=== PATIENT | male | born 1970 | race Hispanic/Latino ===

== ENCOUNTER 2017-10-20 11:49 | Emergency (ER) | payer BC ==
--- NOTE | 2017-10-20 13:31 | ER ---
Nurse's Notes [facility] Name: Jessica Hogan Age: 47 yrs Sex: Male : 1970 Arrival Date: 10/20/2017 Time: 11:53 Bed 13 Private MD: Diagnosis: Acute sinusitis;Perforation of tympanic membrane-right;Acute serous otitis media, left ear Presentation: 10/20 12:02 Presenting complaint: Patient states: Sinus congestion and pain since Saturday. Reports aj ear congestion and dizziness when turning head. Ambulated to triage with steady gait. Transition of care: patient was not received from another setting of care. Onset of symptoms was October 18, 2017. Risk Assessment: Do you want to hurt yourself or someone else? Patient reports no desire to harm self or others. Initial Sepsis Screen: Does the patient meet any 2 criteria? No. Patient's initial sepsis screen is negative. Does the patient have a suspected source of infection? No. Patient's initial sepsis screen is negative. Care prior to arrival: None. 12:02 Method Of Arrival: Ambulatory aj 12:02 Acuity: PIETRO 4 aj Triage Assessment: 12:03 General: Appears in no apparent distress. comfortable, Behavior is calm, cooperative, aj appropriate for age. Pain: Complains of pain in right eye, right cheek, nose, left cheek and left eye. EENT: Reports nasal congestion nasal discharge congestion in ears. Neuro: Level of Consciousness is awake, alert, obeys commands, Oriented to person, place, time, situation, Appropriate for age. Respiratory: Airway is patent Trachea midline Respiratory effort is even, unlabored, Respiratory pattern is regular, symmetrical. Derm: Skin is intact, is healthy with good turgor, Skin is pink, warm \T\ dry. normal. 13:20 Headache History: Denies prior headaches. rb1 13:20 Pain: Also complains of no other associated symptoms. rb1 Historical: - Allergies: 12:03 No Known Allergies; aj - Home Meds: 12:03 Flonase Nasal [Active]; aj - PMHx: 12:03 None; aj - PSHx: 12:03 Knee surgery; aj - Immunization history:: Adult Immunizations up to date. - Social history:: Smoking status: Patient/guardian denies using tobacco. - Ebola Screening: : Patient negative for fever greater than or equal to 101.5 degrees Fahrenheit, and additional compatible Ebola Virus Disease symptoms Patient denies exposure to infectious person Patient denies travel to an Ebola-affected area in the 21 days before illness onset No symptoms or risks identified at this time. Screenin:20 Abuse screen: Denies threats or abuse. Nutritional screening: No deficits noted. rb1 Tuberculosis screening: No symptoms or risk factors identified. Fall Risk None identified. Assessment: 13:20 General: Appears in no apparent distress. comfortable, Behavior is calm, cooperative, rb1 Denies fever. Pain: Complains of pain in forehead Pain currently is 5 out of 10 on a pain scale. Pain began 2-3 days ago. Neuro: Level of Consciousness is awake, alert, obeys commands, Oriented to person, place, time, situation. Cardiovascular: Capillary refill < 3 seconds is brisk in bilateral fingers. Respiratory: Airway is patent Respiratory effort is even, unlabored, Respiratory pattern is regular, symmetrical. GI: No signs and/or symptoms were reported involving the gastrointestinal system. : No signs and/or symptoms were reported regarding the genitourinary system. Derm: Skin is pink, warm \T\ dry. Vital Signs: 12:03 BP 130 / 77; Pulse 74; Resp 20; Temp 98.2; Pulse Ox 100% on R/A; Weight 81.65 kg; aj Height 5 ft. 10 in. (177.80 cm); 13:00 BP 121 / 79; Pulse 64; Resp 19; Pulse Ox 100% on R/A; rb1 14:00 BP 124 / 84; Pulse 61; Resp 17; Pulse Ox 100% on R/A; rb1 12:03 Body Mass Index 25.83 (81.65 kg, 177.80 cm) aj ED Course: 11:53 Patient arrived in ED. rg4 12:03 Triage completed. aj 12:03 Arm band placed on left wrist. Patient placed in waiting room. aj 12:05 Patient notified of wait time. aj 13:15 Mahi Randall [facility]C is [facility]. snw 13:15 Ross Holloway MD is Attending Physician. snw 13:20 Patient has correct armband on for positive identification. Bed in low position. Call rb1 light in reach. Side rails up X 1. Pulse ox on. NIBP on. 13:30 Nicole Thapa MD is Referral Physician. snw 13:42 Tammy Avila, RN is Primary Nurse. rb1 14:18 No provider procedures requiring assistance completed. Patient did not have IV access rb1 during this emergency room visit. Administered Medications: 13:49 Drug: Meclizine 50 mg Route: PO; rb1 14:17 Follow up: Response: No adverse reaction rb1 13:49 Drug: Augmentin 875 mg Route: PO; rb1 14:17 Follow up: Response: No adverse reaction rb1 Outcome: 13:31 Discharge ordered by MD. snw 14:18 Discharged to home ambulatory. rb1 14:18 Condition: stable 14:18 Discharge instructions given to patient, Instructed on discharge instructions, follow up and referral plans. medication usage, Demonstrated understanding of instructions, follow-up care, medications, Prescriptions given X 2. 14:19 Patient left the ED. rb1 Signatures: Carlotta Segura, RN RN Mahi Castaneda, [employer]-C [employer]-Csnw Tammy Avila, RN RN rb1 Charu Forbes rg4
--- NOTE | 2017-10-20 13:31 | EDPHYS ---
Physician Documentation [facility] Name: Jessica Hogan Age: 47 yrs Sex: Male : 1970 Arrival Date: 10/20/2017 Time: 11:53 Bed 13 Private MD: ED Physician Ross Holloway HPI: 10/20 16:06 This 47 yrs old Male presents to ER via Ambulatory with complaints of Sinus snw Pain. 16:07 The patient presents with a fullness, mild lightheadedness. The complaints affect the snw right ear and left ear. Onset: The symptoms/episode began/occurred suddenly, 2 day(s) ago, and became persistent. Associated signs and symptoms: The patient has no apparent associated signs or symptoms. Severity of symptoms: At their worst the symptoms were moderate. The patient has experienced similar episodes in the past. The patient has not recently seen a physician. Historical: - Allergies: 12:03 No Known Allergies; aj - Home Meds: 12:03 Flonase Nasal [Active]; aj - PMHx: 12:03 None; aj - PSHx: 12:03 Knee surgery; aj - Immunization history:: Adult Immunizations up to date. - Social history:: Smoking status: Patient/guardian denies using tobacco. - Ebola Screening: : Patient negative for fever greater than or equal to 101.5 degrees Fahrenheit, and additional compatible Ebola Virus Disease symptoms Patient denies exposure to infectious person Patient denies travel to an Ebola-affected area in the 21 days before illness onset No symptoms or risks identified at this time. ROS: 15:56 Eyes: Negative for injury, pain, redness, and discharge. snw 15:56 Neck: Negative for injury, pain, and swelling, Cardiovascular: Negative for chest pain, palpitations, and edema, Respiratory: Negative for shortness of breath, cough, wheezing, and pleuritic chest pain, Abdomen/GI: Negative for abdominal pain, nausea, vomiting, diarrhea, and constipation, Back: Negative for injury and pain, : Negative for injury, bleeding, discharge, and swelling, MS/Extremity: Negative for injury and deformity, Skin: Negative for injury, rash, and discoloration. 15:56 Constitutional: Positive for malaise. 15:56 ENT: Positive for ear pain, nasal discharge, sinus congestion, sinus pain, sore throat. 15:56 Neuro: Positive for dizziness. Exam: 15:56 Constitutional: This is a well developed, well nourished patient who is awake, alert, snw and in no acute distress. Head/Face: Normocephalic, atraumatic. Eyes: Pupils equal round and reactive to light, extra-ocular motions intact. Lids and lashes normal. Conjunctiva and sclera are non-icteric and not injected. Cornea within normal limits. Periorbital areas with no swelling, redness, or edema. Neck: Trachea midline, no thyromegaly or masses palpated, and no cervical lymphadenopathy. Supple, full range of motion without nuchal rigidity, or vertebral point tenderness. No Meningismus. Chest/axilla: Normal chest wall appearance and motion. Nontender with no deformity. No lesions are appreciated. Cardiovascular: Regular rate and rhythm with a normal S1 and S2. No gallops, murmurs, or rubs. Normal PMI, no JVD. No pulse deficits. Respiratory: Lungs have equal breath sounds bilaterally, clear to auscultation and percussion. No rales, rhonchi or wheezes noted. No increased work of breathing, no retractions or nasal flaring. Abdomen/GI: Soft, non-tender, with normal bowel sounds. No distension or tympany. No guarding or rebound. No evidence of tenderness throughout. Back: No spinal tenderness. No costovertebral tenderness. Full range of motion. Skin: Warm, dry with normal turgor. Normal color with no rashes, no lesions, and no evidence of cellulitis. MS/ Extremity: Pulses equal, no cyanosis. Neurovascular intact. Full, normal range of motion. Neuro: Awake and alert, GCS 15, oriented to person, place, time, and situation. Cranial nerves II-XII grossly intact. Motor strength 5/5 in all extremities. Sensory grossly intact. Cerebellar exam normal. Normal gait. Psych: Awake, alert, with orientation to person, place and time. Behavior, mood, and affect are within normal limits. 15:56 ENT: External ear(s): are unremarkable, Ear canal(s): are normal, TM's: dullness, fluid levels, on the left, rupture, on the right, no dc. Vital Signs: 12:03 BP 130 / 77; Pulse 74; Resp 20; Temp 98.2; Pulse Ox 100% on R/A; Weight 81.65 kg; aj Height 5 ft. 10 in. (177.80 cm); 13:00 BP 121 / 79; Pulse 64; Resp 19; Pulse Ox 100% on R/A; rb1 14:00 BP 124 / 84; Pulse 61; Resp 17; Pulse Ox 100% on R/A; rb1 12:03 Body Mass Index 25.83 (81.65 kg, 177.80 cm) aj MDM: 13:23 Patient medically screened. snw 16:05 Data reviewed: vital signs, nurses notes. Data interpreted: Pulse oximetry: on room air snw is 100 %. Counseling: I had a detailed discussion with the patient and/or guardian regarding: the historical points, exam findings, and any diagnostic results supporting the discharge/admit diagnosis, the presence of at least one elevated blood pressure reading (>120/80) during this emergency department visit, the need for outpatient follow up, to return to the emergency department if symptoms worsen or persist or if there are any questions or concerns that arise at home. Special discussion: I have referred the patient to see his PCP for further evaluation of high blood pressure. Based on the history and exam findings, there is no indication for further emergent testing or inpatient evaluation. I discussed with the patient/guardian the need to see the primary care provider for further evaluation of the symptoms. Administered Medications: 13:49 Drug: Meclizine 50 mg Route: PO; rb1 14:17 Follow up: Response: No adverse reaction rb1 13:49 Drug: Augmentin 875 mg Route: PO; rb1 14:17 Follow up: Response: No adverse reaction rb1 Disposition: 16:18 Co-signature as Attending Physician, Ross Holloway MD I agree with the assessment and kdr plan of care. Disposition: 10/20/17 13:31 Discharged to Home. Impression: Acute sinusitis, Perforation of tympanic membrane - right, Acute serous otitis media, left ear. - Condition is Stable. - Discharge Instructions: Dehydration, Adult, Otitis Media, Adult, Sinusitis, Adult, Rehydration, Adult. - Prescriptions for Augmentin 875- 125 mg Oral Tablet - take 1 tablet by ORAL route every 12 hours for 10 days; 20 tablet. Meclizine 25 mg Oral Tablet - take 1 tablet by ORAL route every 8 hours As needed; 30 tablet. - Work release form, Medication Reconciliation Form, Thank You Letter, Antibiotic Education, Prescription Opioid Use form. - Follow up: Nicole Thapa MD; When: 1 week; Reason: Recheck today's complaints, Continuance of care. Signatures: Carlotta Segura, RN RN Ross Espinoza MD MD kdr Therrien, Shelly, THREAD [employer]NER-C THREAD SPINNER-Csnw Tammy Avila, RN RN rb1 Corrections: (The following items were deleted from the chart) 14:19 13:31 10/20/2017 13:31 Discharged to Home. Impression: Acute sinusitis; Perforation of rb1 tympanic membrane - right; Acute serous otitis media, left ear. Condition is Stable. Forms are Medication Reconciliation Form, Thank You Letter, Antibiotic Education, Prescription Opioid Use. Follow up: Nicole Thapa; When: 1 week; Reason: Recheck today's complaints, Continuance of care. snw
[2017-10-20] MEDS ORDERED: MECLIZINE HCL 12.5 MG TAB ONE (13:48)
[2017-10-20] MEDS ORDERED: AMOX/K CLAV 875 MG TAB ONE (13:49)
== END 2017-10-20 14:19 | disposition home or self-care (01) ==
LOC: ER 11:49
DX: J01.90 Acute sinusitis, unspecified (principal); H72.91 Unspecified perforation of tympanic membrane, right ear; H65.02 Acute serous otitis media, left ear
CPT/HCPCS: 99283

== ENCOUNTER 2020-08-31 10:03 | Day surgery (SDC) | payer BC ==
--- NOTE | 2020-08-26 13:11 | RAD REPORT ---
EXAM DESCRIPTION: Dominguez Faulkner (2 Views)08/26/2020 12:56 pm CLINICAL HISTORY: Preop for hernia surgery COMPARISON: 2009 FINDINGS: The lungs appear clear of acute infiltrate. The heart is normal size IMPRESSION: No acute abnormalities displayed
[2020-08-26 13:25] LABS: Basophils % 0.7 % (0-1.3); Hematocrit 44.5 % (39.6-49.0); Lymphocytes % 32.6 % (15.3-44.8); MPV 8.5 fL (7.6-11.3); RBC Red Blood Cell Count 4.84 M/uL (4.33-5.43)
[2020-08-26 13:30] LABS: BUN Blood Urea Nitrogen 17 mg/dL (7-18); Bicarbonate 30 mmol/L (21-32); Glucose Level 90 mg/dL (74-106); Potassium 4.2 mmol/L (3.5-5.1); Sodium Level 141 mmol/L (136-145)
[2020-08-31] MEDS ORDERED: Ringers Lactate 1,000 ML IV ONE (10:35)
[2020-08-31 10:57] VITALS: O2SAT 100
[2020-08-31] MEDS: CEFAZOLIN/SWI 1gm 1 GM/10 ML SYR ONE ×2 (11:24→12:30)
[2020-08-31] MEDS ORDERED: LIDOCAINE 1% MPF 5 ML VIAL ONE (12:28)
[2020-08-31] MEDS ORDERED: propofoL 200 MG/20 ML VIAL IV ONE (12:28)
[2020-08-31] MEDS ORDERED: MIDAZOLAM HCL 2 MG/2 ML INJ ONE (12:28)
[2020-08-31] MEDS ORDERED: ROCURONIUM 50 MG/5 ML VIAL IV ONE (12:28)
[2020-08-31] MEDS ORDERED: FENTANYL CITR 100 MCG/2 ML ONE ×2 (12:28→13:16)
[2020-08-31] MEDS ORDERED: KETOROLAC 30 MG/ML INJ ONE (13:01)
[2020-08-31] MEDS ORDERED: ONDANSETRON 4 MG/2 ML VIAL ONE ×2 (13:08→15:54)
[2020-08-31] MEDS ORDERED: dexAMETHasone 10 MG/ML VIAL ONE (13:11)
--- NOTE | 2020-08-31 13:12 | P.BOP ---
Preoperative diagnosis: RLQ incisional pain, RLQ abd pain, bilateral inguinal pain Postoperative diagnosis: same plus extensive lower abdominal adhesions, umbilical hernia Primary procedure: 1. Diagnostic laparoscopy, 2. Extensive laparoscopic lysis of adhesions Secondary procedure: 3. repair of umbilical hernia Clinical Counselor: EDEL SANDERS (SURGICAL SPECIALIST) Estimated blood loss: <10cc Specimen: hernia sac Findings: extensive lower abdominal adhesions with entrapment of ascending colon Anesthesia: General Transferred to: Recovery Room Condition: Good
[2020-08-31] MEDS ORDERED: GLYCOPYRROLATE 0.2 MG/ML SYR ONE (13:27)
[2020-08-31] MEDS ORDERED: NEOSTIGMINE 1 MG/ML -5 ML ONE (13:28)
[2020-08-31] MEDS ORDERED: SUGAMMADEX SODIUM 200 MG/2 ML VIAL IV ONE (13:36)
[2020-08-31 16:07] VITALS: BP 125/81; TEMP 97.3
--- NOTE | 2020-09-05 10:23 | OP ---
Date of Procedure: 08/31/2020 Surgeon: Edvin Saavedra MD Can Operator: Essence Romero. Preoperative Diagnoses: Right lower quadrant incisional pain, right lower quadrant abdominal pain, b ilateral inguinal pain. Postoperative Diagnoses: Right lower quadrant incisional pain, right lower quadrant abdominal pain, bilateral inguinal pain, extensive lower abdominal adhesions, umbilical hernia. Procedures: 1.Diagnostic laparoscopy. 2.Extensive laparoscopic lysis of adhesions. 3.Repair of umbilical hernia. Estimated Blood Loss: Less than 10 mL. Specimen: Hernia sac. Findings: Extensive lower abdominal adhesions with entrapment of the ascending colon between those a dhesions. Anesthesia: General plus local. Indication: This is the case of a male, who comes to us with lower abdominal pain, etiology of that is unknown. He says the pain is in the right lower quadrant over the previous open appendectomy inci rhys that he had many years ago, but also bilateral inguinal region on exertion. We have not been ab le to find exact etiology of his pain. It is disturbing his social life and he wants something to be done. He had extensive imaging that has not been able to detect neither the etiology of his pain, s o we offered him a diagnostic laparoscopy and any anesthetic procedure with benefits, alternatives, a nd risks include, but not limited to infection, bleeding, damage to adjacent structures, anesthesia c omplication, negative exploration, PR, even . He also understands this may not relieve the symp toms. He might need more than one surgical intervention. He understood, signed a consent. Description Of Procedure: The patient was brought to the operating room and placed in supine positio n. Anesthesia was done without complication. Abdominal area was prepped and draped in sterile fashi on. A time-out was called. An incision was made in the infraumbilical region. Incision was carried down to fascia. We noticed the patient to have an umbilical hernia with some incarcerated omentum a ttached to it. The hernia sac was removed. The omentum was reduced back into the abdominal cavity a fter fully inspected and make sure it is viable. This allowed me to put a Vicryl #1 inside of the fa scia. Maricruz trocar was carefully introduced. No bleeding was obtained. The patient had extensive intraabdominal adhesions come from the pelvis all the way to the right lower quadrant allegedly from that previous open complicated appendectomy he had many years ago. We were able to find a place on t he left lower quadrant that we can place a 5 mm trocar safely. Once we have that, we were able to pl medina in the [employer] and start to carefully remove the adhesions. As we removed the adhesions, we can see more and more. We see that some of that adhesions are kinking and entraping the ascending colon in a different angle, so we put another 5 mm trocar and we proceeded then to take those lysis of adh esions out. We took most of the time just to do lysis of adhesions, releasing them within the pelvis , releasing them from the right lower quadrant. The bowel looks viable and released now. The ascend ing, transverse, descending colon with no extraluminal masses seen. Liver with no extracapsular mass es seen. Stomach soft and compressible. The area of the inguinal region, I cannot see inguinal heather ias in that region. At least, I do not see any peritoneum going in any hole. Pelvic was intact. Th e adhesions were done without any enterotomies. After inspecting the area and inspecting the small b owel with no masses neither, at that moment I proceeded to remove the trocars under direct vision, de flated pneumoperitoneum, closed the umbilical hernia with #1 Vicryl, irrigated subcutaneous tissue, c losed with 3-0 chromic and skin approximated. Sponge counts and instrument counts correct. The wesley ent tolerated the procedure well. The patient was sent to recovery in stable condition. Disposition: Home. Activity: As tolerated. No heavy lifting. Plan: Follow up in my office in 1 week. Call for appointment at [phone]. Keep area dry for 48 kayce rs, then may shower. Medications: See orders. HM/MODL Voice ID: [id number] Report ID: [id number]
== END 2020-08-31 16:15 | disposition home or self-care (01) ==
LOC: OR 10:03
PROVIDERS: ATTEND Surgery
PROC: 0DNW4ZZ Release Peritoneum, Percutaneous Endoscopic Approach (ICD-10-PCS; 2020-08-31)
PROC: 0WQF4ZZ Repair Abdominal Wall, Percutaneous Endoscopic Approach (ICD-10-PCS; principal; 2020-08-31 11:15)
DX: K42.0 Umbilical hernia with obstruction, without gangrene (principal); R10.32 Left lower quadrant pain; K66.0 Peritoneal adhesions (postprocedural) (postinfection); Z20.822 Contact with and (suspected) exposure to COVID-19
CPT/HCPCS: 49653; 93005; 85025; 80048; 36415; 88304; 71046; 49329; U0002; J2704; J2250; J3010 ×2; J1100; J2710; J0690; J7120; J2405 ×2; 88302